=== PATIENT | male | born 1975 | race Caucasian/White ===

== ENCOUNTER → 2017-08-31 | Day surgery (SDC) | payer OTHER ==
[~2017-08-31] MED LIST: BUPIVACAINE HCL 0.5% 10ML MPF VIAL INJ ONE; CEFAZOLIN SOD 1 GM VIAL ONE; DEXAMETHASONE SOD PHOS INJ 4 MG/ML VIAL ONE; FENTANYL CITRATE/PF 100MCG/2 ML INJ ONE; LIDOCAINE HCL 2% LOCAL INJ 5 ML SDV VIAL INJ ONE; LISINOPRIL10 MG PO; MIDAZOLAM HCL 2 MG/2 ML VIAL ONE; MUPIROCIN 2% OINT 22 GM TUBE ONE; ONDANSETRON HCL INJ 2 MG/ML VIAL ONE; PROPOFOL IV EMULSION 10 MG/ML 20 ML VIAL ONE; SEVOFLURANE INHAL SOLN 250 ML PEN BTL ONE
--- NOTE | 2017-08-31 08:47 | Operative Report ---
DATE OF PROCEDURE: August 31, 2017 PREOPERATIVE DIAGNOSIS: Bilateral carpal tunnel syndrome. POSTOPERATIVE DIAGNOSES 1. Bilateral carpal tunnel syndrome. 2. Flexor tenosynovitis, bilateral wrist. PROCEDURES 1. Bilateral open carpal tunnel release. 2. Flexor tenosynovectomy, bilateral wrist. ANESTHESIA: General. HISTORY: The patient is a 41-year-old male with EMG-proven bilateral carpal tunnel syndrome. Risks, benefits and alternatives of treatment were discussed with the patient. The patient is prepared to undergo the procedure as outlined. PROCEDURE: The patient was brought to the operating theater. After the induction of adequate general inhalation anesthesia, the patient was prepped and draped in the supine position. A time out was performed by the entire operating room team. A 2.5-cm incision was marked out in the intrathenar space. The bilateral upper extremities were exsanguinated and a tourniquet was inflated to a pressure of 250 mmHg. The incision was made through the skin and subcutaneous tissues and all venous tributaries were controlled with bipolar cautery. The incision was deepened through the palmar fascia until the transverse carpal ligament was identified. The ligament was sharply sectioned, taking care to protect and preserve the median nerve underlying it. After the complete width of the ligament had been transected, the distal volar forearm fascia was divided under direct view. Proliferative flexor tenosynovium was noticed to encompass the median nerve and this was radically excised. After performing this maneuver, the nerve was noted to lie adequately decompressed. The wound was copiously irrigated with bacteriostatic saline, closed with 5-0 nylon in an interrupted horizontal mattress fashion. A Marcaine field block was performed at the operative site. Tourniquet was deflated. All of the fingers pinked up nicely and a sterile bulking conforming bandage was applied to the hand and the wrist. A fiberglass splint was fashioned to maintain the wrist in a modest amount of extension. This was held in place with a loosely wrapped Leonard wrap. The same procedure was repeated on the opposite side. The patient tolerated the procedure well and was brought to the recovery room in satisfactory condition and discharged with a postoperative instruction sheet as well as a followup appointment. Job#: [id number]
== END | disposition home or self-care (01) ==
LOC: OR 05:17
PROVIDERS: ATTEND Plastic Surgery
DX: G56.03 Carpal tunnel syndrome, bilateral upper limbs (principal); M65.842 Other synovitis and tenosynovitis, left hand; M65.841 Other synovitis and tenosynovitis, right hand; I10 Essential (primary) hypertension; E11.9 Type 2 diabetes mellitus without complications; Z01.810 Encounter for preprocedural cardiovascular examination
CPT/HCPCS: 25115; 93005; J0690; J1100; J2001; J2250; J2405

== ENCOUNTER → 2020-01-23 | Day surgery (SDC) | payer OTHER ==
[~2020-01-23] MED LIST changes: -CEFAZOLIN SOD 1 GM VIAL ONE; +CEFAZOLIN SOD 1 GM/NS 50ML 50 ML IV ONE; -DEXAMETHASONE SOD PHOS INJ 4 MG/ML VIAL ONE; +KETOROLAC TROMETHAMINE 30 MG/ML VIAL ONE; +LIDOCAINE HCL 2% LOCAL 20 ML VIAL ONE; -LIDOCAINE HCL 2% LOCAL INJ 5 ML SDV VIAL INJ ONE; +MEPIVACAINE HCL 2% 20 ML VIAL ONE; +MULTI-VITAMIN1 EACH PO; -ONDANSETRON HCL INJ 2 MG/ML VIAL ONE; +PHENTERMINE H37.5 MG PO; -PROPOFOL IV EMULSION 10 MG/ML 20 ML VIAL ONE; -SEVOFLURANE INHAL SOLN 250 ML PEN BTL ONE; +VITAMIN C1000 MG PO
[2020-01-23 08:10] VITALS: BP 108/74
== END | disposition home or self-care (01) ==
LOC: OR 05:42
PROVIDERS: ATTEND Plastic Surgery
DX: M67.432 Ganglion, left wrist (principal); I10 Essential (primary) hypertension; K44.9 Diaphragmatic hernia without obstruction or gangrene; Z01.810 Encounter for preprocedural cardiovascular examination; Z01.812 Encounter for preprocedural laboratory examination; Z20.828 Contact with and (suspected) exposure to other viral communicable diseases
CPT/HCPCS: 25111; 88304; 93005; J0670; J0690; J1885; J2001; J2250; J3010; U0002

== ENCOUNTER → 2024-09-19 | Day surgery (SDC) | payer OTHER ==
[~2024-09-19] MED LIST changes: +ACETAMINOPHEN-1 EAC4 PO; -BUPIVACAINE HCL 0.5% 10ML MPF VIAL INJ ONE; +CALCIUM PO; -CEFAZOLIN SOD 1 GM/NS 50ML 50 ML IV ONE; +DEXAMETHASONE SOD PHOS INJ 4 MG/ML SDV ONE; +HYDROCODONE/APAP 7.5MG-325MG 1 EA TAB ONE; -LIDOCAINE HCL 2% LOCAL 20 ML VIAL ONE; -MEPIVACAINE HCL 2% 20 ML VIAL ONE; -MUPIROCIN 2% OINT 22 GM TUBE ONE; +ONDANSETRON HCL INJ 2MG/ML 2ML 2 MG/ML VIAL ONE; +PROPOFOL IV EMULSION 10 MG/ML 20 ML VIAL ONE; +VITAMIN D310 MCG PO
[2024-09-19] MEDS: LACTATED RINGER'S 1,000 ML ONE (06:18)
[2024-09-19 08:40] VITALS: TEMP 97.2
[2024-09-19] MEDS: HYDROCODONE/APAP 7.5MG-325MG 1 EA TAB PO ONE (09:39)
[2024-09-19 10:05] VITALS: BP 136/91; PULSE 50; RESP 18; O2SAT 99
== END | disposition home or self-care (01) ==
LOC: OR 05:51
PROVIDERS: ATTEND Plastic Surgery
DX: M67.432 Ganglion, left wrist (principal); Z01.810 Encounter for preprocedural cardiovascular examination
CPT/HCPCS: 25111; 88304; 93005; C1713; J0690; J1100; J1885; J2250; J2405; J2704; J3010; J7121